=== PATIENT | female | born 1985 | race African-American/Black ===

== ENCOUNTER 2019-01-28 12:14 | Observation (INO) | payer BC, OTHER ==
[~2019-01-28] VITALS: Ht 152.4 cm; Wt 62.6 kg
[2019-01-28] MEDS: LACTATED RINGERS 1,000 ML IV SCH ×2 (13:01→14:06)
[2019-01-28] MEDS ORDERED: PNV1TABL50 MT (13:02)
[2019-01-28 13:12] LABS: CHLORIDE 107 mEq/L (98-107)
[2019-01-28 13:23] LABS: BASOPHILS % 0.4 % (0.0-2.0); EOSINOPHILS % 0.8 % (0.0-5.0); HEMATOCRIT. 34.9 % (36.0-48.0); HEMOGLOBIN. 11.7 g/dL (12.0-16.0); LYMPHOCYTES % 36.5 % (20.0-50.0); MEAN CORPUSCULAR VOLUME 95.5 fL (81.0-99.0); MONOCYTES % 9.4 % (2.0-8.0); NEUTROPHILS % 52.9 % (40.0-76.0); PLATELET 215 x1000/uL (130-400); RED BLOOD CELL COUNT 3.65 mill/uL (4.2-5.4); RED CELL DISTRIBUTION WIDTH 13.9 % (11.6-14.6)
== END 2019-01-28 16:25 | disposition home or self-care (01) ==
LOC: 8 EST LDRP 12:14
PROVIDERS: ADMIT Obstetrics & Gynecology Obstetrics; ATTEND Obstetrics & Gynecology Obstetrics
DX: O26.893 Other specified pregnancy related conditions, third trimester (principal); R42 Dizziness and giddiness; Z3A.36 36 weeks gestation of pregnancy
CPT/HCPCS: 36415; 80053; 85025; 96360; 96361; 99281; G0378